=== PATIENT | female | born 1970 | race Caucasian/White ===

== ENCOUNTER 2020-03-28 00:10 | Outpatient (CLI) | payer BC, SELFPAY ==
[2020-03-28 18:38] LABS: SARS-CoV-2 RNA PCR Negative
== END 2020-03-28 00:11 | disposition home or self-care (01) ==
LOC: ANHCOVIDDT 00:10
PROVIDERS: PCP Family Medicine; Visit Provider Internal Medicine Gastroenterology
DX: Z01.812 Encounter for preprocedural laboratory examination (principal); Z20.828 Contact with and (suspected) exposure to other viral communicable diseases
CPT/HCPCS: 87635; C9803; U0003

== ENCOUNTER 2020-03-30 01:20 | Day surgery (SDC) | payer BC, SELFPAY ==
[2020-03-22 13:36] VITALS: BMI 28.2
[2020-03-30] MEDS: LACTATED RINGERS 1,000 ML 150 ML IV CONT (07:58)
[2020-03-30 08:05] VITALS: BP 139/88; PULSE 84; RESP 16; TEMP 36.3; O2SAT 97
--- NOTE | 2020-03-30 08:16 | WPDANESEPPF ---
Anes - Initial Pre Proc Eval Procedure: Operation Date: 03/30/20 09:00 Proposed Procedures p Screening Colonoscopy - Andrew Salcedo MD Date/Time: 03/30/20 08:16 Surgeon: Andrew Salcedo MD Pre Op Diagnosis: Neoplasm Screening Patient Data Age: 50 Gender: F Height: 5 ft 2 in Weight: 68.3 kg Last Vital Signs Temp 97.3 F L 03/30/20 08:05 Pulse 84 03/30/20 08:05 Resp 16 03/30/20 08:05 BP 139/88 03/30/20 08:05 Pulse Ox 97 03/30/20 08:05 Allergies Allergy/AdvReac Type Severity Reaction Status Date / Time Penicillins Allergy Unknown Unknown Verified 03/30/20 08:02 sertraline Allergy Unknown Swelling Verified 03/30/20 08:02 Home Medications Medication Instructions Recorded Confirmed Type lorazepam 0.5 mg tablet 0.5 mg PO BID PRN tablet 04/25/19 03/22/20 History buspirone 7.5 mg tablet 7.5 mg PO BID #60 tablet 10/12/19 03/22/20 Rx meloxicam 15 mg tablet 15 mg PO DAILY #90 tablet 02/29/20 03/22/20 Rx bupropion HCl 150 mg 24 hr tablet, See Rx Instructions .ROUTE 03/05/20 03/22/20 Rx extended release .COMPLEX #90 tablet losartan 25 mg tablet See Rx Instructions .ROUTE 03/07/20 03/22/20 Rx .COMPLEX #90 tablet Patient hx anesthesia problems: none Family hx anesthesia problems: none PMFSH Past Medical History Medical History (Updated 02/06/20 @ 10:52 by Jono Olvera MD) Anxiety Depression Essential hypertension Idiopathic thrombocytopenia purpura IFG (impaired fasting glucose) Family History Family History Father Hypertension Mother Family history of diabetes mellitus in first degree relative Family history of malignant neoplasm of breast in first degree relative Family history of liver disease Other Diabetes mellitus Family history of arthritis Family history of malignant neoplasm Social History Social History Smoking status: Former smoker Smoking end date: 06/15/91 Alcohol intake: current Drinks per week: 3 Substance use: never Substance use type: does not use Living arrangements: with family Spiritual care concerns: No Anes - Eval Final PreProcedure Day of Procedure 03/30/20 08:16 Patient weight: normal Heart: regular rate and rhythm Lungs: clear to auscultation Airway: Mallampati scale class II Neurological: alert and oriented Last oral intake: >/= 8 hours ASA classification: III Emergent: no Anesthetic plan: proceed Anesthesia type and monitoring: general GIVS and standard monitoring Informed Consent: The patient's anesthetic plan and its attendant risks and benefits were discussed with the patient/family/POA. Questions were solicited and answers provided to the satisfaction of the patient/family/POA.
--- NOTE | 2020-03-30 08:42 | P.HP_ITS ---
History of Present Illness History of Present Illness Consent: Risks, benefits, and alternatives have been discussed and questions answered. Patient agrees to proceed with procedure. Chief complaint: Neoplasm Screening Narrative: Gita Solorio is a 50 year old female here for colon cancer screening. FOR[facility]LY [facility], [facility] Past Medical History Medical History Anxiety Depression Essential hypertension Idiopathic thrombocytopenia purpura IFG (impaired fasting glucose) Family History Family History Father Hypertension Mother Family history of diabetes mellitus in first degree relative Family history of malignant neoplasm of breast in first degree relative Family history of liver disease Other Diabetes mellitus Family history of arthritis Family history of malignant neoplasm Social History Social History Smoking status: Former smoker Smoking end date: 06/15/91 Alcohol intake: current Drinks per week: 3 Substance use: never Substance use type: does not use Living arrangements: with family Spiritual care concerns: No Meds Home Medications and Allergies Home Medications Medication Instructions Recorded Confirmed Type lorazepam 0.5 mg tablet 0.5 mg PO BID PRN tablet 04/25/19 03/22/20 History buspirone 7.5 mg tablet 7.5 mg PO BID #60 tablet 10/12/19 03/22/20 Rx meloxicam 15 mg tablet 15 mg PO DAILY #90 tablet 02/29/20 03/22/20 Rx bupropion HCl 150 mg 24 hr tablet, See Rx Instructions .ROUTE 03/05/20 03/22/20 Rx extended release .COMPLEX #90 tablet losartan 25 mg tablet See Rx Instructions .ROUTE 03/07/20 03/22/20 Rx .COMPLEX #90 tablet Allergies Allergy/AdvReac Type Severity Reaction Status Date / Time Penicillins Allergy Unknown Unknown Verified 03/30/20 08:02 sertraline Allergy Unknown Swelling Verified 03/30/20 08:02 Vital Signs Vital Signs - 24 hr 03/30/20 08:05 Temperature 36.3 C L Pulse Rate 84 Respiratory Rate 16 Blood Pressure 139/88 Pulse Oximetry 97 Exam Resp: Auscultation: clear to auscultation bilaterally Cardio: Rate: regular rate Rhythm: regular rhythm GI: GI Palp: Yes Soft to palpation and No Tenderness to palpation present (GI) Assessment and Plan Assessment and plan (1) Colon cancer screening: Code(s): Z12.11 - Encounter for screening for malignant neoplasm of colon Status: Acute Assessment and Plan: Colonoscopy with possible biopsy or polypectomy or cautery or injection of substances.
[2020-03-30 10:21] VITALS: BP 144/86; PULSE 107; RESP 23; O2SAT 100
[2020-03-30 10:31] VITALS: BP 141/91; PULSE 83; RESP 31; O2SAT 100
[2020-03-30 10:41] VITALS: BP 131/101; PULSE 76; RESP 19; O2SAT 100
== END 2020-03-30 11:05 | disposition home or self-care (01) ==
PROVIDERS: PCP Family Medicine; Visit Provider Internal Medicine Gastroenterology
PROC: 0DJD8ZZ Inspection of Lower Intestinal Tract, Via Natural or Artificial Opening Endoscopic (ICD-10-PCS; CPT 45378; principal; 2020-03-30 09:00)
DX: Z12.11 Encounter for screening for malignant neoplasm of colon (principal); K57.30 Diverticulosis of large intestine without perforation or abscess without bleeding; I10 Essential (primary) hypertension; F41.8 Other specified anxiety disorders; Z87.891 Personal history of nicotine dependence
CPT/HCPCS: 45378; J2704; J7120

== ENCOUNTER 2021-08-15 14:57 | Outpatient (CLI) | payer BC, SELFPAY ==
[2021-08-15 15:21] LABS: Basophils Absolute Auto 0.1 K/mm3 (0.0-0.1); Basophils Percent Auto 1.4 % (0.2-1.2); Eosinophils Absolute Auto 0.5 K/mm3 (0-0.3); Eosinophils Percent Auto 9.2 % (0-4.4); Hematocrit 41.6 % (37.0-47.0); Immature Granulocyte Absolute 0.01 K/mm3 (0.00-0.031); Immature Granulocyte Percent A 0.2 % (0-0.5); Lymphocytes Absolute Auto 1.63 K/mm3 (0.9-3.2); Lymphocytes Percent Auto 28.3 % (18.3-44.2); Mean Corpuscular HGB Conc 33.7 g/dl (32-36); Mean Corpuscular Volume 86.1 fl (80-100); Mean Platelet Volume 9.1 fl (7.4-10.4); Monocytes Absolute Auto 0.7 K/mm3 (0.1-0.6); Monocytes Percent Auto 12.9 % (2.6-8.5); Neutrophils Absolute Auto 2.8 K/mm3 (1.3-6.7); Platelet Count Result 260 k/mm3 (150-375); Red Blood Count 4.83 M/mm3 (4.2-5.4); Red Cell Distribution Width 12.2 % (11.5-14.5); White Blood Count 5.8 K/mm3 (4.5-10.0)
[2021-08-15 15:34] LABS: Alanine Aminotransferase 23 U/L (4-35); Albumin Level 4.6 g/dL (3.5-5.1); Alkaline Phosphatase 72 U/L (38-126); Anion Gap 7 mmol/L (8-16); Aspartate Amino Transferase 32 U/L (14-36); Bilirubin,Total 0.8 mg/dL (0.2-1.3); Blood Urea Nitrogen 25 mg/dL (7-17); Calcium 9.1 mg/dL (8.4-10.2); Carbon Dioxide 26 mmol/L (22-30); Chloride 103 mmol/L (98-107); Estimated Glomerular Filt Rate > 60; Glucose 100 mg/dL (65-110); Potassium 3.9 mmol/L (3.4-5.0); Sodium 136 mmol/L (137-145)
[2021-08-15 15:36] LABS: CRP < 0.5 mg/dL (<1.0)
[2021-08-15 15:38] LABS: Rheumatoid Factor < 8.6 IU/ML (<12)
[2021-08-15 16:17] LABS: Erythrocyte Sedimentation Rate 12 mm/hr (0-20)
[2021-08-21 05:39] LABS: ANA Pattern Nuclear, Nucleolar
== END 2021-08-15 14:58 | disposition home or self-care (01) ==
PROVIDERS: PCP Family Medicine; Visit Provider Physician Assistant
DX: M25.50 Pain in unspecified joint (principal); D69.3 Immune thrombocytopenic purpura; I10 Essential (primary) hypertension; R73.01 Impaired fasting glucose
CPT/HCPCS: 36415; 80053; 83036; 84443; 85025; 85652; 86038; 86039; 86140; 86430

== ENCOUNTER 2022-05-16 14:53 | Outpatient (CLI) | payer BC, SELFPAY ==
--- NOTE | ~2022-05-16 | CT_ITS ---
EXAMINATION: CT abdomen pelvis wo con DATE: 05/16/2022 16:02 INDICATION: Epigastric abdominal pain. Small bowel obstruction 3-4 weeks ago for which patient was ho spitalized. Symptoms have reappeared over the past week. TECHNIQUE: Computed tomography (CT) of the abdomen and pelvis was performed without intravenous contr ast. Automated exposure control and iterative reconstruction technique were employed. Exam dose: 354 .00 mGy-cm total exam DLP. COMPARISON: None. FINDINGS: The lung bases are clear of infiltrate or consolidation. A couple small pneumatoceles are n oted in the right lower lobe. Normal heart size. No pericardial or pleural effusion. An approximately 2.2 cm posterior right hepatic dome cyst. The liver is otherwise unremarkable. The g allbladder is present. No bile duct or pancreatic duct dilatation. No pancreatic mass lesion or calci fication is detected. Normal splenic size. Normal morphology of the adrenal glands. No renal mass lesion or urinary tract calculus or hydroureteronephrosis. The urinary bladder the uter us and adnexal areas appear unremarkable. Normal caliber of the abdominal aorta. No intraperitoneal or retroperitoneal or pelvic mass lesion or adenopathy or ascites. The appendix appears normal. There are nondilated fluid containing small bowel segments. Diverticulosis of the left and right colon; no CT evidence of diverticulitis. No bowel obstruction or intraperitoneal free air. Small fat-containing umbilical hernia. No suspicious osteolytic or osteoblastic lesions. IMPRESSION: Nonspecific bowel gas pattern without evidence of obstruction or free air Normal appendix Diverticulosis of left and right colon; no evidence of diverticulitis Hepatic cyst Reviewed, dictated and finalized at [facility] Reviewed, dictated and finalized at [facility] IMPRESSION: Nonspecific bowel gas pattern without evidence of obstruction or f ree air Normal appendix Diverticulosis of left and right colon; no evidence of diverticulitis Hepatic cyst
[2022-05-16 15:31] LABS: Basophils Absolute Auto 0.1 K/mm3 (0.0-0.1); Basophils Percent Auto 1.5 % (0.2-1.2); Eosinophils Absolute Auto 0.3 K/mm3 (0-0.3); Hemoglobin 13.6 g/dL (12.0-15.0); Lymphocytes Absolute Auto 1.26 K/mm3 (0.9-3.2); Lymphocytes Percent Auto 31.4 % (18.3-44.2); Mean Corpuscular HGB Conc 33.2 g/dl (32-36); Mean Corpuscular Hemoglobin 28.1 pg (26-34); Mean Corpuscular Volume 84.7 fl (80-100); Monocytes Absolute Auto 0.6 K/mm3 (0.1-0.6); Monocytes Percent Auto 14.5 % (2.6-8.5); Neutrophils Absolute Auto 1.8 K/mm3 (1.3-6.7); Neutrophils Percent Auto 44.6 % (45.5-73.1); Platelet Count Result 227 k/mm3 (150-375); Red Blood Count 4.84 M/mm3 (4.2-5.4); Red Cell Distribution Width 12.8 % (11.5-14.5)
[2022-05-16 15:42] LABS: Appearance Urine Clear (Clear); Bilirubin Urine Negative (Negative); Blood Urine Negative (Negative); Color Urine Yellow (Yellow); Glucose Urine UA Negative (Negative); Ketones Urine Negative (Negative); Leukocyte Esterase Ur Negative LEU/UL (NEGATIVE); Nitrate Urine Negative (Negative); Protein Urine 1+ mg/dL (Negative); Specific Grav Ur 1.015 (1.001-1.035)
[2022-05-16 15:43] LABS: Alanine Aminotransferase 32 U/L (6-35); Albumin Level 4.4 g/dL (3.5-5.1); Alkaline Phosphatase 70 U/L (38-126); Amylase 85 U/L (30-110); Anion Gap 8 mmol/L (8-16); Aspartate Amino Transferase 42 U/L (14-36); Bilirubin,Total 0.6 mg/dL (0.2-1.3); Blood Urea Nitrogen 18 mg/dL (7-17); Calcium 8.2 mg/dL (8.4-10.2); Carbon Dioxide 29 mmol/L (22-30); Chloride 99 mmol/L (98-107); Estimated Glomerular Filt Rate > 60; Glucose 92 mg/dL (65-110); Lipase 89 U/L (23-300); Potassium 3.8 mmol/L (3.4-5.0); Sodium 136 mmol/L (137-145)
[2022-05-16 15:49] LABS: RBC Urine 0-2 /hpf (0-2); Squamous Epithelial Cell Urine Rare /hpf (Few); WBC Urine 0-3 /hpf (0-3)
[2022-05-16 15:53] LABS: Add Urine Microscopic? YES
== END 2022-05-16 14:54 | disposition home or self-care (01) ==
PROVIDERS: Physician Assistant; PCP Family Medicine; Visit Provider Family Medicine
DX: R10.13 Epigastric pain (principal); K56.609 Unspecified intestinal obstruction, unspecified as to partial versus complete obstruction; R11.2 Nausea with vomiting, unspecified; R42 Dizziness and giddiness; K57.30 Diverticulosis of large intestine without perforation or abscess without bleeding; K76.89 Other specified diseases of liver
CPT/HCPCS: 36415; 74176; 80053; 81001; 82150; 83690; 85025